=== PATIENT | male | born 1980 | race Caucasian/White ===

== ENCOUNTER 2024-06-08 21:17 | Inpatient (IN) | payer BC, OTHER ==
[2024-06-08 23:42] VITALS: BMI 23.3
[2024-06-08] MEDS ORDERED: Acetaminophen 325 MG TAB PO PRN (23:54)
[2024-06-08] MEDS ORDERED: Ondansetron PF 4 MG/2 ML Vial IVP PRN (23:54)
[2024-06-08] MEDS ORDERED: Ondansetron ODT 4 MG TAB PO PRN (23:54)
[2024-06-08] MEDS ORDERED: hydrALAZINE 20 MG/ML VIAL SLOW IVP PRN (23:54)
[2024-06-09 00:21] LABS: #Basophils 0.03 10x3/uL (0.0-0.2); %Basophils 0.5 % (0.0-1.0); %Eosinophils 3.2 % (0.0-10.0); %Lymphocytes 42.7 % (21.0-51.0); %Monocytes 9.3 % (0.0-10.0); Hematocrit 37.4 % (42.0-52.0); Hemoglobin 12.9 g/dL (14.0-18.0); Mean Corpuscular HGB CONC 34.5 g/dL (32.0-36.0); Mean Corpuscular Hemoglobin 31.9 pg (27.0-31.0); Mean Corpuscular Volume 92.3 fL (78.0-98.0); Platelet Count 160 10x3/uL (130-400); RBC Distribution Width 13.1 % (11.5-14.5); Red Blood Cell (RBC) Count 4.05 mill/uL (4.70-6.10)
[2024-06-09 00:36] LABS: ALT (SGPT) 19 U/L (8-55); AST (SGOT) 17 U/L (5-34); Albumin 3.7 g/dL (3.5-5.0); Alkaline Phosphatase 35 U/L (40-110); Anion Gap 13 mmol/L (10-20); BUN (Urea Nitrogen) 34 mg/dL (8.9-20.6); Bilirubin, Total 0.2 mg/dL (0.2-1.2); Calc. Creatinine Clearance 122 mL/min (70-130); Calcium 8.4 mg/dL (7.8-10.44); Carbon Dioxide 24 mmol/L (22-29); Chloride 106 mmol/L (98-107); Estimated GFR 110; Globulin 2.2 g/dL (2.4-3.5); Glucose 94 mg/dL (70-105); Potassium 3.9 mmol/L (3.5-5.1); Protein, Total 5.9 g/dL (6.0-8.3); Sodium 139 mmol/L (136-145)
[2024-06-09] MEDS: Aspirin Chewable 81 MG TAB PO SCH (00:59)
[2024-06-09 05:27] LABS: Hemoglobin A1c 5.2 % (4.0-6.0)
[2024-06-09 05:32] LABS: Cardiac Risk 3.9 (Less than 4.5); Cholesterol 191 mg/dl (< 200 Desired); HDL Cholesterol 49 mg/dL (>60 Neg Risk); LDL Cholesterol, Calculated 132 mg/dL; Magnesium 1.8 mg/dL (1.6-2.6); Triglycerides 51 mg/dL (Less than 150)
[2024-06-09] MEDS: Aspirin 81 mg Enteric Coated Tablet PO SCH (08:14)
[2024-06-09 16:58] LABS: Prothrombin Time 12.7 sec (12.0-14.7)
[2024-06-09 17:00] LABS: PTT 32.2 sec (22.9-36.1)
[2024-06-09 17:02] LABS: D-Dimer Test Less than 0.27 mcg/mL (0.27-0.43)
[2024-06-09] MEDS: Atorvastatin Calcium 40 MG TAB PO SCH (20:07)
[2024-06-10 04:20] LABS: #Basophils 0.03 10x3/uL (0.0-0.2); %Basophils 0.4 % (0.0-1.0); %Eosinophils 2.7 % (0.0-10.0); %Lymphocytes 42.8 % (21.0-51.0); %Monocytes 8.1 % (0.0-10.0); %Neutrophils 45.6 % (42.0-75.0); Hematocrit 38.2 % (42.0-52.0); Mean Corpuscular Hemoglobin 32.2 pg (27.0-31.0); Mean Corpuscular Volume 94.6 fL (78.0-98.0); Mean Platelet Volume 9.1 fL (7.4-10.4); Platelet Count 190 10x3/uL (130-400); RBC Distribution Width 13.1 % (11.5-14.5); Red Blood Cell (RBC) Count 4.04 mill/uL (4.70-6.10)
[2024-06-10 04:41] LABS: Anion Gap 9 mmol/L (10-20); BUN (Urea Nitrogen) 20 mg/dL (8.9-20.6); Calc. Creatinine Clearance 136 mL/min (70-130); Calcium 8.6 mg/dL (7.8-10.44); Carbon Dioxide 24 mmol/L (22-29); Chloride 108 mmol/L (98-107); Estimated GFR 114; Glucose 98 mg/dL (70-105); Potassium 4.2 mmol/L (3.5-5.1); Sodium 137 mmol/L (136-145)
[2024-06-10 13:02] LABS: Cardiolipin IgA Ab 1.9 APL-U/mL (<14 Negative); Cardiolipin IgG Ab 0.7 GPL-U/mL (<10 Negative); Cardiolipin IgM Ab Less than 0.9 MPL-U/mL (<10 Negative); EliA APS New Method **** NEW METHOD ****
[2024-06-11 15:25] VITALS: BP 108/67; TEMP 97.8
== END 2024-06-11 16:03 | disposition home or self-care (01) | DRG 65 ==
LOC: 2NO 23:12 → OBSVTOIN 06-09 16:38
PROVIDERS: ADMIT Student in an Organized Health Care Education/Training Program; ATTEND Internal Medicine
DX: I63.9 Cerebral infarction, unspecified (principal); Q21.12 Patent foramen ovale; R29.90 Unspecified symptoms and signs involving the nervous system; F17.290 Nicotine dependence, other tobacco product, uncomplicated; I10 Essential (primary) hypertension; H53.2 Diplopia; Z88.0 Allergy status to penicillin
CPT/HCPCS: 36415; 36416; 70551; 80048; 80053; 80061; 83036; 83090; 83735; 84443; 85025; 85300; 85303; 85305; 85307; 85598; 85610; 85730; 86147; 93306

== ENCOUNTER 2024-06-23 06:07 | Day surgery (SDC) | payer BC ==
[2024-06-23] MEDS ORDERED: Lidocaine 1% PF 5 ML VIAL ONE (07:41)
[2024-06-23] MEDS ORDERED: PROPOFOL 200 MG/20 ML VIAL ONE (07:41)
== END 2024-06-23 08:43 | disposition home or self-care (01) ==
LOC: SDC 06:07
PROVIDERS: ATTEND Internal Medicine Cardiovascular Disease
PROC: B24BZZZ Ultrasonography of Heart with Aorta (ICD-10-PCS; principal; 2024-06-23)
DX: Q21.12 Patent foramen ovale (principal); I63.9 Cerebral infarction, unspecified; F17.200 Nicotine dependence, unspecified, uncomplicated; Z88.0 Allergy status to penicillin
CPT/HCPCS: 93312; J2704